=== PATIENT | male | born 1950 | race Caucasian/White ===

== ENCOUNTER → 2017-04-23 | Outpatient (CLI) | payer OTHER ==
[~2017-04-23] MED LIST: ALL DAY ALLERGY10 M3 PO; BACTRIM DS TAB1 EACH PO; CITRACAL + D C1 EACH PO; CLARITIN PO; GLUCOPHAGE XR750 MG PO; HYDROCODON-ACE1 EAC7 PO; IBUPROFEN 600600 M1 PO; IBUPROFEN200 M1 PO; LORTABELXR PO; MULTIVITAMINS PO; NYSTATIN-TRIAMC15 GM TP; OMEPRAZOLE 20 M20 M1 PO; PREVACID30 M1 PO; SENNA PLUS TAB1 EACH PO; VENTOLIN HFA 1818 GM
== END ==
LOC: CAT 10:10
DX: C40.00 Malignant neoplasm of scapula and long bones of unspecified upper limb (principal)

== ENCOUNTER → 2017-11-16 | Outpatient (CLI) | payer OTHER ==
[~2017-11-16] MED LIST changes: +CEFDINIR300 MG PO; +GUAIFEN-CODEINE10 ML PO; +MUCINEX1200 MG PO; +PREDNISONE 10 M10 MG PO
== END ==
LOC: RAD 15:30
DX: J98.11 Atelectasis (principal)

== ENCOUNTER → 2018-01-04 | Outpatient (CLI) | payer OTHER | LOC: RAD 12:54 | DX: J18.9 Pneumonia, unspecified organism (principal); R91.8 Other nonspecific abnormal finding of lung field ==

== ENCOUNTER → 2018-05-10 | Outpatient (CLI) | payer OTHER | LOC: RAD 09:47 → SPEECH 12:54 | DX: R13.12 Dysphagia, oropharyngeal phase (principal) ==

== ENCOUNTER → 2018-11-01 | Outpatient (CLI) | payer OTHER | LOC: RAD 14:33 | DX: R05 Cough (principal); R06.02 Shortness of breath ==

== ENCOUNTER → 2019-04-29 | Outpatient (CLI) | payer OTHER | LOC: RAD 15:43 | DX: M75.92 Shoulder lesion, unspecified, left shoulder (principal) ==

== ENCOUNTER → 2019-06-14 | Outpatient (CLI) | payer OTHER ==
[~2019-06-14] VITALS: Ht 160 cm; Wt 70.8 kg
[~2019-06-14] MED LIST changes: +ALBUTEROL2.5 MG/31 INH; +MEDROLDOSEPACK PO; +MUCINEX DM ER1 EACH PO; +SYNTHROID75 MCG PO; +TYLENOL EXTRA500 MG PO; +VITAMIN D PO; +VITAMIN D31000 UNIT PO; +ZTLIDO1 EACH TOP
[2019-06-14 10:41] VITALS: BP 106/35
== END ==
LOC: MRI 09:11
DX: M48.54XA Collapsed vertebra, not elsewhere classified, thoracic region, initial encounter for fracture (principal); M75.82 Other shoulder lesions, left shoulder; M21.822 Other specified acquired deformities of left upper arm; M25.78 Osteophyte, vertebrae; R73.01 Impaired fasting glucose; Z88.8 Allergy status to other drugs, medicaments and biological substances; Z91.040 Latex allergy status
CPT/HCPCS: 50010; 62110; 62900; 70005

== ENCOUNTER → 2019-06-29 | Outpatient (CLI) | payer OTHER ==
[~2019-06-29] VITALS: Ht 162.6 cm; Wt 68.5 kg
[2019-06-29 13:48] VITALS: BP 112/64
--- NOTE | 2019-06-29 14:23 | NUR ---
Pain Clinic Assessment: 1. History of Osteoarthritis: Left Lower Extremity Left Upper Extremity History of Rheumatoid Arthritis: Not Applicable 2. Height: 5 ft. 4 in. 162.6 cm. Weight: 151.0 lb. oz. 68.493 kg. Patient's BMI: 25.9 3. Vital Signs: BP: 112/64 Pulse: 66 Resp: 14 Temp: 02 Sat: 96 ECG Mon: 4. Pain Intensity: 5. Fall Risk: Dizziness: N Needs help standing or walking: N Fallen in the last 3 months: Y Fall risk comments: 6. Patient on Blood Thinner: None 7. History of Hypertension: N 8. Opioid Therapy greater than 6 weeks: N Opiate Contract Signed: 9. Risk Assessment Tool Provided: 10. Functional Assessment Tool: 11. Recreational Drug Use: Never Drug Type: Tobacco Use: Never Smoker Tobacco Type: Amount or Packs/day: How Many Years: Alcohol Use: No Frequency: Quant:
--- NOTE | 2019-07-25 09:49 | HPC ---
[facility] [address] [place] [address] PAIN MANAGEMENT CONSULTATION Name: BLANKA VEGA Room #: REG ADALID Oeflia#: [id number] Admission: 06/29/19 Attend Phys: Cierra Campa MD Discharge: Date of : 50 Report #: [id number] THIS REPORT FOR: //name// CC: Cierra Dover MD DATE OF SERVICE: 06/29/2019 CHIEF COMPLAINT: Back pain. HISTORY: The patient is a 68-year-old gentleman who has been brought to the pain clinic. His care is primarily given by his sister. She provides the history. The patient is nonverbal. He complains of midline and thoracic back pain. He suffers from osteoporosis. It has been determined that he has a decreased level of vitamin D. Has a history of cerebral palsy. The patient's pain appears to be worse when he is sitting down. Lying down can exacerbate the discomfort. He is unable to quantify his pain level. His sister's perception is that he seems to be hurting quite a bit of the time. MRI of his thoracic spine indicated chronic compression fracture at T5 and T12. ALLERGIES: VALIUM cause a reverse reaction causing him to be more hyper, TAPE. CURRENT MEDICATIONS: Vitamin D, ZTlido patches topical at bedtime, albuterol 2.5 mg p.r.n. shortness of breath, levothyroxine 75 mcg, omeprazole 20 mg, and metformin ER 750 mg. PAST MEDICAL HISTORY: 1. Cough. 2. Diabetes mellitus. 3. Dysphagia, multiple allergies, osteoporosis. 4. History of pneumonia, 01/2018. 5. 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 PAST SURGICAL HISTORY: Cholecystectomy in 2013, cyst removal, left shoulder x 2. SOCIAL HISTORY: The patient's cerebral palsy has not worked. REVIEW OF SYSTEMS: Per his sister's observations, fatigue, weakness, chronic sinus problems, chronic frequent coughs, shortness of breath, asthma, diarrhea at times, constipation at times, rectal bleeding, abdominal pain, frequent urination, nails splitting, rash and itching, nervousness, thyroid disease, diabetes. MRI of the thoracic spine dated 06/14/2019, thoracic spine, history of [address] [address] PAIN MANAGEMENT CONSULTATION Name: GARYBLANKA Room #: REG [facility].#: [id number] Admission: 06/29/19 Attend Phys: Cierra Campa MD Discharge: Date of : 50 Report #: [id number] compression fracture. FINDINGS: There are chronic compression fractures at T5 and T12 with mild height loss at T5, measuring approximately 35% and [id number] negative height loss at T12 measuring 45%. Small chronic superior endplate compression fracture versus chronic superior endplate Schmorl's noted at L1-L2 as well. No acute compression fracture. Thoracic vertebral body alignment is maintained. There is multilevel anterior osteophytes within the mid and lower thoracic and upper lumbar spine. There is no significant disk bulge, chronic stenosis or foraminal narrowing at any level. The thoracic cord demonstrates normal signal and morphology. The conus medullaris terminates at L1-L2 demonstrating normal signal and morphology. Paraspinous musculature is unremarkable. Exam dated 04/29/2019, three views of the left shoulder. Indication, left shoulder pain with history of osteosarcoma. Findings: There is some mix ground glass/sclerotic expansile bone lesion in the proximal humerus extending from the humeral head inferiorly into the metaphyseal region. There is well-defined margins with intact cortex and no evidence of a periosteal reaction. Its overall size and appearance was unchanged from the CT on 04/23/2017. MRI of the shoulder dated 06/14/2019, indication, left shoulder pain. Findings, stable posttraumatic deformity of the proximal humerus with areas of cystic degeneration. The morphology remains benign and unchanged from the prior CT studies. Supraspinatus tendinosis without a discrete rotator cuff tear. Thoracic spine MRI dated 08/17/2006. Old compression deformity involving the lower thoracic spine without acute edema. There is no evidence for an acute compression fracture. Central canal and neural foraminal stenosis is seen. No central canal or neural foraminal stenosis is seen at any level. PAIN CLINIC ASSESSMENT AND PQRS: 1. History of osteoarthritis involving the lower extremity on the left and upper extremity on the left. The patient is not being treated for rheumatoid arthritis. 2. Height 5 feet 4 inches, weight 151 pounds, BMI is 25.9. 3. Vital Signs: Blood pressure 112/64, pulse 66, respiratory rate 14, room air saturation is 96%. 4. Pain intensity. The patient is unable to give a number, but is constantly moving, which would make one infer that the patient has some discomfort. 5. Risk assessment tool, low for opioid use. 6. Opioid therapy greater than 6 weeks. The patient is not on a chronic opioid regimen. 7. Blood thinner. The patient is not on a blood thinning medication. 8. Hypertension. The patient is not being treated for hypertension. [address] [address] PAIN MANAGEMENT CONSULTATION Name: BLANKA VEGA Room #: REG ADALID Gilbert#: [id number] Admission: 06/29/19 Attend Phys: Cierra Campa MD Discharge: Date of : 50 Report #: [id number] 9. Recreational drugs. The patient is not on recreational drugs. 10. Tobacco: The patient has never smoked. 11. Alcohol: The patient does not drink alcoholic beverages. PHYSICAL EXAMINATION: GENERAL: The patient is a well-developed, 68-year-old gentleman. He is unable to provide his history. His history is provided by his sister. NECK: Without adenopathy. The patient is constantly in motion during the interview. Moves back and forth in a rocking motion and when asked where his pain was, indicates the upper thoracic area of his back. The patient is constantly leaning forward. Has a kyphotic appearance. EXTREMITIES: Upper extremity muscle strength judged to be 5-/5 for the major muscle groups in the upper extremity. Lower extremity, the patient without significant lordosis. Does not complain of pain in the lower extremities. He is able to walk and maneuver without complaining of pain radiating down into his legs. IMPRESSION: 1. Chronic back pain. 2. History of compression fractures in the past. 3. Cough. 4. Diabetes mellitus. 5. Dysphagia, multiple allergies, osteoporosis. 6. History of pneumonia 01/2018. 7. Sarcoma left shoulder 03/2017. RECOMMENDATIONS: We discussed treatment options with the patient's sister. At this juncture, we will try a conservative approach. The patient will try a Medrol Dosepak. We will also have the patient consider for a back brace. He constantly sits and leans forward. His sister feels that he has continued to become more and more kyphotic. I think that a trial of a brace to help to support the upper extremity and help with the kyphosis, which he is developing would be quite beneficial. We will have the patient seen and fitted for a thoracic brace to help with his posture. We have explained to his sister the pathophysiology of compression fractures. With the patient leaning constantly in a forward position and in a increased kyphotic position, this places more pressure on the anterior portion of the vertebral body. This can increase the likelihood of compression fractures. A back brace has been prescribed. The brace is prescribed to reduce the pain by restricting the mobility of the trunk. [facility] [address] [place] [address] PAIN MANAGEMENT CONSULTATION Name: BLANKA VEGA [id number] Admission: 06/29/19 Attend Phys: Cierra Campa MD Discharge: Date of : 50 Report #: [id number] We would like to thank you for letting us participate in his care. We hope he continues to improve. <ELECTRONICALLY SIGNED> By: Cierra Campa MD 07/25/19 0949 [id number] Cierra Campa MD /RAJ
== END ==
LOC: PAIN 06-28 14:38
DX: M54.5 Low back pain (principal); G89.29 Other chronic pain; E11.9 Type 2 diabetes mellitus without complications; R05 Cough; R13.10 Dysphagia, unspecified

== ENCOUNTER → 2019-07-22 | Outpatient (CLI) | payer OTHER ==
[~2019-07-22] VITALS: Ht 162.6 cm; Wt 68.5 kg
[2019-07-22 12:32] VITALS: BP 128/61
--- NOTE | 2019-07-22 12:40 | NUR ---
Pain Clinic Assessment: 1. History of Osteoarthritis: Left Lower Extremity Left Upper Extremity History of Rheumatoid Arthritis: Not Applicable 2. Height: 5 ft. 4 in. 162.6 cm. Weight: 151.0 lb. oz. 68.493 kg. Patient's BMI: 25.9 3. Vital Signs: BP: 128/61 Pulse: 73 Resp: 15 Temp: 02 Sat: 95 ECG Mon: 4. Pain Intensity: Unable to Rate 5. Fall Risk: Dizziness: N Needs help standing or walking: N Fallen in the last 3 months: N Fall risk comments: HERE WITH FAMILY 6. Patient on Blood Thinner: None 7. History of Hypertension: N 8. Opioid Therapy greater than 6 weeks: N Opiate Contract Signed: 9. Risk Assessment Tool Provided: 10. Functional Assessment Tool: 11. Recreational Drug Use: Never Drug Type: Tobacco Use: Never Smoker Tobacco Type: Amount or Packs/day: How Many Years: Alcohol Use: No Frequency: Quant:
--- NOTE | 2019-07-29 08:19 | HPC ---
[facility] [place] [address] PAIN MANAGEMENT CONSULTATION Name: BLANKA VEGA Room #: REG [facility] Ofelia#: [id number] Admission: 07/22/19 Attend Phys: Cierar Capma MD Discharge: Date of : 50 Report #: [id number] THIS REPORT FOR: //name// CC: Cierra Dover MD DATE OF SERVICE: 07/22/2019 CHIEF COMPLAINT: Here for the back brace fitting. HISTORY: The patient is a 68-year-old gentleman who has been followed in the pain clinic. He has had compression fractures. He is cared for by his sister. The patient is nonverbal. He has osteoporosis. Has a decreased level of vitamin D. Has a history of cerebral palsy. The patient notes that he has pain and discomfort with certain activities. His sister states that he has pain and discomfort often times. He points to an area in the low back area. Past MRI indicated thoracic compression fracture at T5 and T12. ALLERGIES: 1. VALIUM CAUSED A PARADOXICAL RESPONSE WITH INCREASED ACTIVITY. 2. TAPE. CURRENT MEDICATIONS: Vitamin D, Ztlido patches topical at bedtime, albuterol 2.5 mg, levothyroxine 75 mcg, omeprazole 20 mg, and metformin ER 750. PAIN CLINIC ASSESSMENT AND PQRS: 1. History of osteoarthritis. The patient does have some osteoarthritic changes. He has had compression fractures in the T12 and T5 areas. He is not being treated for rheumatoid arthritis. 2. Height 5 feet 4 inches, weight 151 pounds, BMI is 25.9. 3. Vital signs: Blood pressure 128/61, pulse 73, respiratory rate 15, room air saturation 95%. 4. Pain intensity, unable to vocalize, but does continue to point to an area in the low back area at approximately T1-T2. 5. Fall risk. The patient has not fallen. 6. Blood thinner. The patient is not on a blood thinning medication. 7. Hypertension. The patient is not being treated for hypertension. 8. Opioids greater than 6 weeks. The patient is not on opioid regimen. 9. Functional assessment tool 35/70. 10. Recreational drug use: The patient denies. 11. Tobacco: The patient has never smoked. 12. Alcohol: The patient does not drink. PHYSICAL EXAMINATION: GENERAL: The patient is a well-developed, well-nourished [place] [address] PAIN MANAGEMENT CONSULTATION Name: BLANKA VEGA Room #: REG CLI [facility]#: [id number] Admission: 07/22/19 Attend Phys: Cierra Campa MD Discharge: Date of : 50 Report #: [id number] nonverbal. He is able to interact with his sister and appears to understand what his complaints are. NECK: Without adenopathy. NEUROLOGIC: The patient still remains constantly in motion. He has pain in the lower portion of his back. He does sit in the chair and rocks back and forth. Has some kyphotic changes in the upper thoracic area. MUSCULOSKELETAL: Upper extremity muscle strength judged to be 5/5 for the major muscle groups. Lower extremity muscle strength judged to be 5/5 for the major muscle groups in the lower extremity. The patient does continue when questioned to point to an area approximately L1-L2, L2-L3 in the low back area with complaint of pain. IMPRESSION: 1. Chronic back pain approximately L1-L2 and L2-L3 midline. 2. History of compression fractures in the past T12/T5. 3. Chronic cough. 4. Diabetes. 5. Dysphagia, multiple allergies/osteoporosis, and history of pneumonia. 6. Sarcoma of the left arm with pain in the left arm. RECOMMENDATIONS: We discussed treatment options with the patient and his sister. At this point, he continues to find that the pain is uncomfortable. He does have pain and points to an area in the mid portion of his back. He did take a Medrol Dosepak. He is not sure as to what level of benefit that was, but feels that he did seem to note some improvement. He still sits and leans forward. He was provided with a chest brace. This was to help decrease mobilization and movement in his spine. He smiles well. He is wearing this. It appears that he is getting some benefit from this. The patient also has some pain in his left shoulder. The patient's sister said that he saw his orthopedic doctor. There might be an option to have this shoulder injected in the future. Overall, it seems like it has healed well and things are going reasonably well. We discussed the treatment with the patient's sister. We will proceed with trigger point injections to the mid back area. PROCEDURE NOTE: The patient was placed in a sitting position. His back was sterilely prepped at the L1-L2 area with chlorhexidine solution. A total of 40 mg triamcinolone and 8 mL of 0.5% bupivacaine was used to inject the trigger point. Palpation in the area of L1-L2 midline, did reproduce pain and the patient states indicating that this was a part of the component of his pain. A total of 20 mg triamcinolone was injected at the first level in trigger point. The second level at L1-L2 was identified. This was palpated. The second level in trigger point was at the L1-L2. Aspiration was negative. A total of 4 mL of 0.5% bupivacaine was injected at this level as well. The patient tolerated the procedure well. There were no complications. He indicated that the pain was less. Although no number could be attached. He will follow up in the future as needed. [place] [id number] [email or web address] [place] [address] PAIN MANAGEMENT CONSULTATION Name: BLANKA VEGA Room #: REG SHIRLENERaissa Gilbert#: [id number] Admission: 07/22/19 Attend Phys: Cierra Campa MD Discharge: Date of : 50 Report #: [id number] We would like to thank you for letting us participate in his care. We hope he continues to improve. <ELECTRONICALLY SIGNED> By: Cierra Campa MD 07/29/19 0819 0824 1329 Cierra Campa MD /nt
== END | disposition home or self-care (01) ==
LOC: PAIN 06:53
DX: M79.18 Myalgia, other site (principal); M54.5 Low back pain; G89.29 Other chronic pain; E11.9 Type 2 diabetes mellitus without complications; Z98.890 Other specified postprocedural states; Z79.899 Other long term (current) drug therapy; Z88.8 Allergy status to other drugs, medicaments and biological substances; Z91.040 Latex allergy status

== ENCOUNTER → 2019-10-17 | Outpatient (CLI) | payer OTHER | LOC: RAD 11:19 | DX: J98.4 Other disorders of lung (principal); M47.814 Spondylosis without myelopathy or radiculopathy, thoracic region; J18.9 Pneumonia, unspecified organism ==

== ENCOUNTER → 2020-02-29 | Outpatient (CLI) | payer OTHER | LOC: CAT 08:15 | PROVIDERS: ATTEND Family Medicine | DX: N28.1 Cyst of kidney, acquired (principal); I51.7 Cardiomegaly; I25.10 Atherosclerotic heart disease of native coronary artery without angina pectoris; R19.5 Other fecal abnormalities; R63.4 Abnormal weight loss ==

== ENCOUNTER 2021-09-23 10:29 | Emergency (ER) | payer OTHER ==
[~2021-09-23] VITALS: Ht 157.5 cm; Wt 63.5 kg
[~2021-09-23 10:29] MED LIST changes: +SYNTHROID50 MCG PO; -SYNTHROID75 MCG PO
[2021-09-26] MEDS ORDERED: CEFDINIR300 MG PO (16:37)
[2021-10-04] MEDS ORDERED: AZITHROMYCIN500 MG PO (16:38)
[2021-10-21] MEDS ORDERED: CLARITIN10 M3 PO (09:50)
[2021-10-26] MEDS ORDERED: FLOMAX0.4 MG PO (11:33)
== END 2021-09-23 10:44 | disposition left against medical advice (07) ==
LOC: ER 10:29
DX: R10.9 Unspecified abdominal pain (principal); Z53.21 Procedure and treatment not carried out due to patient leaving prior to being seen by health care provider

== ENCOUNTER → 2021-10-11 | Outpatient (CLI) | payer OTHER ==
[~2021-10-11] MED LIST changes: -SYNTHROID50 MCG PO; +SYNTHROID75 MCG PO
== END ==
LOC: CAT 08:56
PROVIDERS: ATTEND Family Medicine
DX: I25.10 Atherosclerotic heart disease of native coronary artery without angina pectoris (principal); I51.7 Cardiomegaly; J98.11 Atelectasis; J90 Pleural effusion, not elsewhere classified; K76.89 Other specified diseases of liver; R91.8 Other nonspecific abnormal finding of lung field
CPT/HCPCS: 62110; 62900; 70005